=== PATIENT | female | born 1950 | race Caucasian/White ===

== ENCOUNTER 2021-07-07 12:37 | Emergency (ER) | payer MEDICARE, OTHER ==
[2021-07-07 13:07] LABS: PTT,PARTIAL THROMBOPLSTIN TIME 21.6 SEC (23.2-32.3)
[2021-07-07 13:11] LABS: CHLORIDE,CL 106 mEq/L (98-106); SODIUM,NA 145 mEq/L (136-145)
--- NOTE | 2021-07-07 14:37 | EDM.PDOC ---
ED HPI GENERAL MEDICAL PROBLEM - General Chief Complaint: General Stated Complaint: cant talk Time Seen by Provider: 07/07/21 13:00 Source of Information: Reports: Patient History Limitations: Reports: No Limitations - History of Present Illness INITIAL COMMENTS - FREE TEXT/NARRATIVE: Vilma is a 71 year old female who presents to ER with a history of a 10 minute episode of numbness and tingling in her right arm and couldn't speak well. States was sitting at [employer], had eaten dinner and was conversing with family. 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 She relates this has happened 2 other times before. Had a multitude of tests done at that time, MRIs, labs but couldn't really find anything wrong except a lower Vitamin B12. Is now on replacement. relates that have felt it was related to history of west nile infection. At present, patient denies sore throat, cough, chest congestion or shortness of breath. No nausea/vomiting/abdominal pain. Admits to being tired and having a hard time staying awake but has been spending long days with family as of late. Denies any difficulty swallowing while eating. Relates after difficulty remembering her meds and such. Onset: Today, Sudden Duration: Minutes:, Resolved Prior to Arrival Location: Reports: Head, Upper Extremity, Right Severity: Mild Associated Symptoms: Reports: Confusion, Headaches, Weakness. Denies: Chest Pain, Cough, Fever/Chills, Loss of Appetite, Malaise, Nausea/Vomiting, Seizure, Shortness of Breath, Syncope - Related Data Allergies Allergy/AdvReac Type Severity Reaction Status Date / Time No Known Allergies Allergy Verified 07/07/21 12:51 Home Meds: Home Meds Anastrozole [Arimidex] 1 mg PO DAILY 07/07/21 [History] Aspirin [Halfprin] 81 mg PO DAILY 07/07/21 [History] Calcium Carbonate/Vitamin D3 [Calcium 500 + Vit D 400] 1 each PO DAILY 07/07/21 [History] Dextran 70/Hypromellose [Artificial Tears] 1 each OP QID PRN 07/07/21 [History] Ibuprofen 200 - 600 mg PO Q6H PRN 07/07/21 [History] Insulin Glargine,Hum.Rec.Anlog [Yobani Osorio] 34 unit SQ DAILY 07/07/21 [History] Latanoprost/Pf [Latanoprost 0.005% Eye Drop] 1 drop OP DAILY 07/07/21 [History] Metoprolol Succinate 50 mg PO DAILY 07/07/21 [History] Multivitamin 1 each PO DAILY 07/07/21 [History] Quinapril HCl 40 mg PO DAILY 07/07/21 [History] Simvastatin 40 mg PO BEDTIME 07/07/21 [History] glipiZIDE [Glipizide ER] 10 mg PO DAILY 07/07/21 [History] metFORMIN HCl [Metformin HCl] 1,000 mg PO BID 07/07/21 [History] valACYclovir HCl [valACYclovir] 1,000 mg PO TID 07/07/21 [History] Past Medical History HEENT History: Reports: Glaucoma Cardiovascular History: Reports: High Cholesterol, Hypertension Endocrine/Metabolic History: Reports: Diabetes, Type II Oncologic (Cancer) History: Reports: Breast - Infectious Disease History Infectious Disease History: Reports: Other (See Below) Other Infectious Disease History: West Nile Infection Social & Family History - Tobacco Use Tobacco Use Status *Q: Never Tobacco User ED ROS GENERAL - Review of Systems Review Of Systems: See Below Constitutional: Reports: Malaise, Weakness, Fatigue. Denies: Fever, Chills, Decreased Appetite HEENT: Reports: Rhinitis. Denies: Ear Pain, Sinus Problem, Throat Pain Respiratory: Denies: Shortness of Breath, Cough Cardiovascular: Denies: Chest Pain, Edema, Lightheadedness Endocrine: Reports: Fatigue GI/Abdominal: Denies: Abdominal Pain, Constipation, Diarrhea, Nausea, Vomiting : Reports: No Symptoms Musculoskeletal: Reports: No Symptoms Skin: Reports: No Symptoms Neurological: Reports: Headache, Numbness (right arm), Tingling, Weakness. Denies: Dizziness Psychiatric: Reports: No Symptoms ED EXAM, GENERAL - Physical Exam Exam: See Below Exam Limited By: No Limitations General Appearance: Alert, WD/WN, No Apparent Distress Eye Exam: Bilateral Eye: EOMI, PERRL Ears: Normal External Exam, Normal TMs Nose: Normal Inspection, Normal Mucosa, No Blood Throat/Mouth: Normal Inspection, Normal Oropharynx Head: Normocephalic Neck: Normal Inspection, Supple, Non-Tender Respiratory/Chest: No Respiratory Distress, Lungs Clear, Normal Breath Sounds Cardiovascular: Regular Rate, Rhythm GI/Abdominal: Normal Bowel Sounds, Soft, Non-Tender Extremities: Normal Inspection, Normal Range of Motion, No Pedal Edema Neurological: Alert, Oriented, CN II-XII Intact, Normal Cognition, Normal Gait, Normal Reflexes, No Motor/Sensory Deficits (symptoms all resolved on arrival to ER) Skin Exam: Warm, Dry Course - Orders/Labs/Meds Orders: Active Orders 24 hr Category Date Time Status Head wo Cont [CT] Stat Exams 07/07/21 12:59 Taken Labs: Laboratory Tests 07/07/21 07/07/21 07/07/21 Range/Units 12:45 12:45 12:45 WBC 6.6 (4.0-11.0) 10^3/uL RBC 4.40 (4.00-5.50) x10^6/uL Hgb 13.6 (12.0-16.0) g/dL Hct 40.4 (37.0-47.0) % MCV 91.8 (83.0-97.0) fL MCH 30.9 (27.0-32.0) pg MCHC 33.7 (32.0-36.0) g/dL RDW Coeff of Desiree 13.0 (11.0-15.0) % Plt Count 180 (150-400) 10^3/uL Immature Gran % (Auto) 0.3 (0.0-4.9) % Neut % (Auto) 50.8 (41-71) % Lymph % (Auto) 33.1 (24-44) % [place] % (Auto) 9.8 (0-10) % Eos % (Auto) 5.4 (0-6) % Baso % (Auto) 0.6 (0-1) % Neut # (Auto) 3.35 (1.80-8.00) x10^3/uL Lymph # (Auto) 2.19 (0.60-5.00) 10^3/uL [place] # (Auto) 0.65 (0.00-1.50) 10^3/uL Eos # (Auto) 0.36 (0.00-1.50) 10^3/uL Baso # (Auto) 0.04 (0.00-0.50) 10^3/uL Immature Gran # (Auto) 0.02 (0.00-0.49) 10^3/uL PT 10.2 (9.7-12.3) SEC INR 0.94 (0.92-1.18) APTT 21.6 L (23.2-32.3) SEC Sodium 145 (136-145) mEq/L Potassium 4.4 (3.5-5.0) mEq/L Chloride 106 (98-106) mEq/L Carbon Dioxide 30 (21-32) mmol/L BUN 21 H (7-18) mg/dL Creatinine 1.1 H (0.6-1.0) mg/dL Est Cr Clr Drug Dosing TNP Estimated GFR (MDRD) 49 L (>=60) mL/min Glucose 213 H (75-99) mg/dL Calcium 9.1 (8.4-10.1) mg/dL Creatine Kinase 33 (21-215) U/L Troponin I High Sens 6.9 (<=51) pg/mL Vitamin B12 (193-986) PG/ML Urine Color (YELLOW) Urine Appearance (CLEAR) Urine pH (4.5-8.0) Ur Specific [place] (1.003-1.020) Urine Protein (NEGATIVE) mg/dL Urine Glucose (UA) (NEGATIVE) mg/dL Urine Ketones (NEGATIVE) mg/dL Urine Occult Blood (NEGATIVE) Urine Nitrite (NEGATIVE) Urine Bilirubin (NEGATIVE) Urine Urobilinogen (0.2-1.0) EU/dL Ur Leukocyte Esterase (NEGATIVE) Urine RBC (0-5) /HPF Urine WBC (0-5) /HPF Ur Epithelial Cells (NOT SEEN) /HPF 07/07/21 07/07/21 Range/Units 12:45 13:30 WBC (4.0-11.0) 10^3/uL RBC (4.00-5.50) x10^6/uL Hgb (12.0-16.0) g/dL Hct (37.0-47.0) % MCV (83.0-97.0) fL MCH (27.0-32.0) pg MCHC (32.0-36.0) g/dL RDW Coeff of Desiree (11.0-15.0) % Plt Count (150-400) 10^3/uL Immature Gran % (Auto) (0.0-4.9) % Neut % (Auto) (41-71) % Lymph % (Auto) (24-44) % [place] % (Auto) (0-10) % Eos % (Auto) (0-6) % Baso % (Auto) (0-1) % Neut # (Auto) (1.80-8.00) x10^3/uL Lymph # (Auto) (0.60-5.00) 10^3/uL [place] # (Auto) (0.00-1.50) 10^3/uL Eos # (Auto) (0.00-1.50) 10^3/uL Baso # (Auto) (0.00-0.50) 10^3/uL Immature Gran # (Auto) (0.00-0.49) 10^3/uL PT (9.7-12.3) SEC INR (0.92-1.18) APTT (23.2-32.3) SEC Sodium (136-145) mEq/L Potassium (3.5-5.0) mEq/L Chloride (98-106) mEq/L Carbon Dioxide (21-32) mmol/L BUN (7-18) mg/dL Creatinine (0.6-1.0) mg/dL Est Cr Clr Drug Dosing Estimated GFR (MDRD) (>=60) mL/min Glucose (75-99) mg/dL Calcium (8.4-10.1) mg/dL Creatine Kinase (21-215) U/L Troponin I High Sens (<=51) pg/mL Vitamin B12 965 (193-986) PG/ML Urine Color Light yellow (YELLOW) Urine Appearance Clear (CLEAR) Urine pH 5.5 (4.5-8.0) Ur Specific [place] 1.015 (1.003-1.020) Urine Protein 30 H (NEGATIVE) mg/dL Urine Glucose (UA) Negative (NEGATIVE) mg/dL Urine Ketones Negative (NEGATIVE) mg/dL Urine Occult Blood Trace-lysed H (NEGATIVE) Urine Nitrite Negative (NEGATIVE) Urine Bilirubin Negative (NEGATIVE) Urine Urobilinogen 0.2 (0.2-1.0) EU/dL Ur Leukocyte Esterase Trace H (NEGATIVE) Urine RBC Not seen (0-5) /HPF Urine WBC 0-5 (0-5) /HPF Ur Epithelial Cells Few H (NOT SEEN) /HPF Meds: Medications Discontinued Medications Generic Name Dose Route Start Last Admin Trade Name Nichol PRN Reason Stop Dose Admin Acetaminophen 650 mg 07/07/21 14:42 07/07/21 14:46 Acetaminophen 325 Mg Tab PO 07/07/21 14:43 650 mg NOW ONE Administration - Re-Assessments/Exams Free Text/Narrative Re-Assessment/Exam: 07/07/[address] negative. EKG NSR. Stroke scale normal. Discussed with patient and spouse. Is completely asymptomatic now. They do feel comfortable discharging home as has had before and had many tests to rule out CVA with negative results. Will return to [facility] if any changes occur or follow up with her PCP early next week. Continue to take usual meds, monitor blood pressure. Departure - Departure Time of Disposition: 14:33 Disposition: Home, Self-Care 01 Condition: Good Clinical Impression: Right arm numbness, History of West Nile virus infection - Discharge Information *PRESCRIPTION DRUG MONITORING PROGRAM REVIEWED*: No *COPY OF PRESCRIPTION DRUG MONITORING REPORT IN PATIENT LESLIE: No Instructions: Fatigue Referrals: PCP,Unknown [Primary Care Provider] - Forms: ED Department Discharge Additional Instructions: 1. Rest 2. Push fluids 3. Monitor blood pressure at home, report concerns to provider 4. Tylenol for headache 5. Follow up with usual provider early next week - My Orders Last 24 Hours: My Active Orders 07/07/21 12:59 Head wo Cont [CT] Stat - Assessment/Plan Last 24 Hours: My Active Orders 07/07/21 12:59 Head wo Cont [CT] Stat
[2021-07-07] MEDS ORDERED: Acetaminophen 325 MG Tab PO ONE (14:42)
== END 2021-07-07 14:50 | disposition home or self-care (01) ==
LOC: CC.ED 12:37
DX: R20.0 Anesthesia of skin (principal); E78.00 Pure hypercholesterolemia, unspecified; I10 Essential (primary) hypertension; E11.9 Type 2 diabetes mellitus without complications; Z79.82 Long term (current) use of aspirin; Z79.4 Long term (current) use of insulin; Z79.899 Other long term (current) drug therapy; Z86.19 Personal history of other infectious and parasitic diseases
CPT/HCPCS: 36415; 70450; 80048; 81001; 82550; 82607; 84484; 85025; 85610; 85730; 93005; 93010; 99284; 99284-25; A9270-GY